=== PATIENT | male | born 1995 | race Caucasian/White ===

== ENCOUNTER → 2025-04-24 11:44 | Outpatient (CLI) | payer OTHER, SELFPAY ==
--- NOTE | 2025-04-24 11:55 | DI.RAD.S_ITS ---
PROCEDURE: XR WRIST RT MIN 3V INDICATIONS: r/o fx or dislocation TECHNIQUE: 4 views of the wrist were acquired. COMPARISON: None. FINDINGS: Bones: No fractures or dislocations. No suspicious bony lesions. Soft tissues: No suspicious soft tissue calcifications. IMPRESSION: No acute right wrist fracture or dislocation. No gross soft tissue abnormalities. Dictated by: Norris Wu M.D. on 04/24/2025 at 12:27 Approved by: Norris Wu M.D. on 04/24/2025 at 12:27
== END ==
LOC: RAD 11:54
PROVIDERS: Referring Provider Chiropractor; Visit Provider Chiropractor
DX: S63.501A Unspecified sprain of right wrist, initial encounter (principal); X58.XXXA Exposure to other specified factors, initial encounter
CPT/HCPCS: 73110